=== PATIENT | female | born 1950 | race Caucasian/White ===

== ENCOUNTER 2018-12-26 10:14 | Outpatient (CLI) | payer MEDICARE, BC ==
[2018-12-26 12:45] LABS: BASOPHILS % (AUTO) 0.5 % (0-1); EOSINOPHILS # (AUTO) 0.1 X10'3 (0-0.9); EOSINOPHILS % (AUTO) 1.3 % (0-6); HEMATOCRIT 34.2 % (35.0-45.0); HEMOGLOBIN 11.5 g/dl (12.0-16.0); LYMPHOCYTES # (AUTO) 1.1 X10'3 (1.1-4.8); LYMPHOCYTES % (AUTO) 10.9 % (21-51); MEAN CORPUSCULAR HEMOGLOBIN 28.8 PG (27.0-31.0); MEAN CORPUSCULAR HGB CONC 33.7 g/dL (33.0-36.5); MEAN CORPUSCULAR VOLUME 85.4 FL (78-98); MONOCYTES # (AUTO) 0.6 X10'3 (0-0.9); MONOCYTES % (AUTO) 6.6 % (2-12); NEUTROPHILS # (AUTO) 7.8 X10'3 (1.8-7.7); NEUTROPHILS % (AUTO) 80.7 % (42-75); PLATELET COUNT 296 X10'3 (140-440); RED BLOOD COUNT 4.01 X10'6 (4.20-5.60); RED CELL DISTRIBUTION WIDTH 13.2 % (11.5-14.5); WHITE BLOOD COUNT 9.7 X10'3 (4.5-11.0)
[2018-12-26 12:48] LABS: D-DIMER 1.22 MG/L FEU (0-0.50)
[2018-12-26 12:58] LABS: ALANINE AMINOTRANSFERASE 44 U/L (12-78); ALBUMIN 3.4 G/DL (3.4-5.0); ALBUMIN/GLOBULIN RATIO 0.7 (1.1-1.5); ALKALINE PHOSPHATASE 159 IU/L (46-116); ANION GAP 9 (8-16); ASPARTATE AMINO TRANSFERASE 32 U/L (10-37); BILIRUBIN,TOTAL 0.6 MG/DL (0.1-1.0); BLOOD UREA NITROGEN 15 MG/DL (7-18); BUN/CREATININE RATIO 19.7 (6.6-38.0); CALCIUM 9.2 MG/DL (8.5-10.1); CHLORIDE 100 MMOL/L (99-107); CREATININE 0.76 MG/DL (0.40-0.90); GLUCOSE 128 MG/DL (70-104); POTASSIUM 3.8 MMOL/L (3.5-5.1); SODIUM 134 MMOL/L (135-145); TOTAL CARBON DIOXIDE 25.1 MMOL/L (24-32); TOTAL PROTEIN 8.2 G/DL (6.4-8.2); eGFR 76 ML/MIN
== END 2018-12-26 23:59 | disposition home or self-care (01) ==
LOC: LAB 10:14
PROVIDERS: ATTEND Obstetrics & Gynecology
DX: M79.605 Pain in left leg (principal); R22.42 Localized swelling, mass and lump, left lower limb
CPT/HCPCS: 36415; 80053; 85025; 85379; 85610; 85651

== ENCOUNTER 2018-12-29 17:52 | Inpatient (IN) | payer MEDICARE, BC ==
[~2018-12-29] VITALS: Ht 162.6 cm; Wt 79.1 kg
[2018-12-29 19:54] LABS: BASOPHILS # (AUTO) 0.1 X10'3 (0-0.2); BASOPHILS % (AUTO) 0.6 % (0-1); EOSINOPHILS # (AUTO) 0.2 X10'3 (0-0.9); EOSINOPHILS % (AUTO) 2.1 % (0-6); HEMATOCRIT 31.1 % (35.0-45.0); HEMOGLOBIN 10.5 g/dl (12.0-16.0); LYMPHOCYTES # (AUTO) 1.1 X10'3 (1.1-4.8); LYMPHOCYTES % (AUTO) 12.4 % (21-51); MEAN CORPUSCULAR HEMOGLOBIN 28.4 PG (27.0-31.0); MEAN CORPUSCULAR HGB CONC 33.9 g/dL (33.0-36.5); MEAN CORPUSCULAR VOLUME 83.9 FL (78-98); MEAN PLATELET VOLUME 7.1 FL (7.4-10.4); MONOCYTES # (AUTO) 0.9 X10'3 (0-0.9); MONOCYTES % (AUTO) 10.1 % (2-12); NEUTROPHILS # (AUTO) 6.5 X10'3 (1.8-7.7); NEUTROPHILS % (AUTO) 74.8 % (42-75); PLATELET COUNT 330 X10'3 (140-440); RED BLOOD COUNT 3.71 X10'6 (4.20-5.60); RED CELL DISTRIBUTION WIDTH 13.5 % (11.5-14.5); WHITE BLOOD COUNT 8.6 X10'3 (4.5-11.0)
[2018-12-29 20:04] LABS: ALANINE AMINOTRANSFERASE 51 U/L (12-78); ALBUMIN/GLOBULIN RATIO 0.7 (1.1-1.5); ALKALINE PHOSPHATASE 161 IU/L (46-116); ANION GAP 8 (8-16); ASPARTATE AMINO TRANSFERASE 43 U/L (10-37); BILIRUBIN,TOTAL 0.3 MG/DL (0.1-1.0); BLOOD UREA NITROGEN 19 MG/DL (7-18); BUN/CREATININE RATIO 22.4 (6.6-38.0); CALCIUM 8.9 MG/DL (8.5-10.1); CHLORIDE 102 MMOL/L (99-107); CREATININE 0.85 MG/DL (0.40-0.90); GLUCOSE 101 MG/DL (70-104); SODIUM 135 MMOL/L (135-145); TOTAL CARBON DIOXIDE 25.4 MMOL/L (24-32); TOTAL PROTEIN 7.3 G/DL (6.4-8.2); eGFR 67 ML/MIN
[2018-12-29] MEDS ORDERED: mag hydrox/Alum hydrox/simeth 30ml oral suspension PO PRN (21:35)
[2018-12-29] MEDS ORDERED: vancomycin/NS 1 GM ADD-VANTAGE 250 ML IV ONE (21:35)
[2018-12-29] MEDS ORDERED: magnesium hydroxide 30ml (MOM) UD suspension PO PRN (21:35)
[2018-12-29] MEDS ORDERED: ondansetron/PF 4mg/2ml inj IV PRN (21:35)
[2018-12-29] MEDS ORDERED: acetaminophen 325mg tablet PO PRN (21:35)
[2018-12-29] MEDS ORDERED: CITA20TA19 PO (21:36)
[2018-12-29] MEDS ORDERED: LISI-604 PO (21:36)
[2018-12-29] MEDS ORDERED: LEVO75TA PO (21:36)
[2018-12-29] MEDS ORDERED: TRAZ-251 PO (21:36)
[2018-12-29] MEDS ORDERED: NAPR-56 PO (21:36)
[2018-12-29 22:30] VITALS: BP 129/54
[2018-12-30] MEDS: HYDROcodone/acetaminophen 10/325mg tab PO PRN (03:09)
[2018-12-30 06:00] VITALS: BP 105/48
[2018-12-30 06:08] LABS: BASOPHILS % (AUTO) 0.5 % (0-1); EOSINOPHILS # (AUTO) 0.2 X10'3 (0-0.9); EOSINOPHILS % (AUTO) 2.3 % (0-6); HEMATOCRIT 30.5 % (35.0-45.0); HEMOGLOBIN 10.3 g/dl (12.0-16.0); LYMPHOCYTES # (AUTO) 1.1 X10'3 (1.1-4.8); LYMPHOCYTES % (AUTO) 14.4 % (21-51); MEAN CORPUSCULAR HEMOGLOBIN 28.6 PG (27.0-31.0); MEAN CORPUSCULAR HGB CONC 33.8 g/dL (33.0-36.5); MEAN CORPUSCULAR VOLUME 84.7 FL (78-98); MEAN PLATELET VOLUME 7.8 FL (7.4-10.4); MONOCYTES # (AUTO) 0.8 X10'3 (0-0.9); NEUTROPHILS # (AUTO) 5.5 X10'3 (1.8-7.7); NEUTROPHILS % (AUTO) 72.8 % (42-75); PLATELET COUNT 307 X10'3 (140-440); RED CELL DISTRIBUTION WIDTH 13.2 % (11.5-14.5); WHITE BLOOD COUNT 7.5 X10'3 (4.5-11.0)
--- NOTE | 2018-12-30 06:14 | NUR ---
Problems reprioritized. Patient report given, questions answered & plan of care reviewed with WILLIAM Cespedes.
[2018-12-30 06:40] LABS: ALANINE AMINOTRANSFERASE 48 U/L (12-78); ALBUMIN 2.7 G/DL (3.4-5.0); ALBUMIN/GLOBULIN RATIO 0.6 (1.1-1.5); ALKALINE PHOSPHATASE 155 IU/L (46-116); ANION GAP 11 (8-16); ASPARTATE AMINO TRANSFERASE 41 U/L (10-37); BILIRUBIN,TOTAL 0.3 MG/DL (0.1-1.0); BLOOD UREA NITROGEN 17 MG/DL (7-18); BUN/CREATININE RATIO 18.7 (6.6-38.0); CALCIUM 8.9 MG/DL (8.5-10.1); CHLORIDE 103 MMOL/L (99-107); CREATININE 0.91 MG/DL (0.40-0.90); GLUCOSE 133 MG/DL (70-104); POTASSIUM 4.4 MMOL/L (3.5-5.1); SODIUM 140 MMOL/L (135-145); TOTAL CARBON DIOXIDE 25.9 MMOL/L (24-32); TOTAL PROTEIN 7.1 G/DL (6.4-8.2); eGFR 62 ML/MIN
[2018-12-30] MEDS ORDERED: heparin, porcine 5000 units/ml vial SQ SCH (08:00)
[2018-12-30] MEDS: levoTHYROXINE 75mcg tablet PO SCH (09:22)
[2018-12-30] MEDS: citalopram 20mg tablet PO SCH (09:22)
[2018-12-30] MEDS: lisinopril 5mg tablet PO SCH (09:22)
[2018-12-30] MEDS: vancomycin/NS 1 GM ADD-VANTAGE 250 ML IV SCH ×2 (09:24→22:15)
[2018-12-30 10:00] VITALS: BP 119/58
[2018-12-30] MEDS ORDERED: HYDROmorphone inj. 0.5 MG/0.5 ML DISP.SYRIN IV PRN (11:10)
[2018-12-30] MEDS ORDERED: HYDROmorphone 1 mg/ml syringe IV PRN (11:10)
--- NOTE | 2018-12-30 16:48 | NUR ---
PAGER ID: [phone] MESSAGE: Rubina Fernandez0 Georgia Collazo in [id number]- pls see mri results, recommends percutaneous drainage. Ortho consult? Addendum: 12/30/18 at 1649 by Genie Walters RN Dr Stanley advised that Jossie will consult
[2018-12-30] MEDS ORDERED: gadopentetate dimeglumine 7.5 MMOL/15 ML syringe ONE (17:44)
[2018-12-30 18:00] VITALS: BP 120/57
--- NOTE | 2018-12-30 18:30 | NUR ---
Patient in room ORTHO 4024. I have received report from Rubina THOMAS and had the opportunity to ask questions and assume patient care.
[2018-12-30] MEDS: lactobacillus rhamnosus 10,000 MMU CELLS/CAPSULE PO SCH (19:05)
[2018-12-30] MEDS: HYDROcodone/acetaminophen 5mg/325mg tablet PO PRN (19:05)
[2018-12-30] MEDS ORDERED: traZODone 50mg tablet PO ONE (19:15)
[2018-12-30] MEDS ORDERED: traZODone 50mg tablet PO SCH (20:00)
[2018-12-30 20:44] VITALS: BP 120/57
[2018-12-30 22:00] VITALS: BP 121/59
[2018-12-31] VITALS (18 sets, daily range): BP systolic 97–136; BP diastolic 40–78
--- NOTE | 2018-12-31 06:26 | NUR ---
Problems reprioritized. Patient report given, questions answered & plan of care reviewed with oncoming RN.
[2018-12-31 06:29] LABS: BASOPHILS % (AUTO) 0.6 % (0-1); EOSINOPHILS # (AUTO) 0.2 X10'3 (0-0.9); EOSINOPHILS % (AUTO) 2.4 % (0-6); HEMATOCRIT 31.6 % (35.0-45.0); HEMOGLOBIN 10.6 g/dl (12.0-16.0); LYMPHOCYTES # (AUTO) 1.4 X10'3 (1.1-4.8); LYMPHOCYTES % (AUTO) 18.8 % (21-51); MEAN CORPUSCULAR HEMOGLOBIN 28.8 PG (27.0-31.0); MEAN CORPUSCULAR HGB CONC 33.6 g/dL (33.0-36.5); MEAN CORPUSCULAR VOLUME 85.5 FL (78-98); MEAN PLATELET VOLUME 7.6 FL (7.4-10.4); MONOCYTES # (AUTO) 0.7 X10'3 (0-0.9); MONOCYTES % (AUTO) 9.2 % (2-12); PLATELET COUNT 332 X10'3 (140-440); RED CELL DISTRIBUTION WIDTH 13.8 % (11.5-14.5); WHITE BLOOD COUNT 7.2 X10'3 (4.5-11.0)
[2018-12-31 06:40] LABS: ALANINE AMINOTRANSFERASE 53 U/L (12-78); ALBUMIN 2.7 G/DL (3.4-5.0); ALBUMIN/GLOBULIN RATIO 0.6 (1.1-1.5); ALKALINE PHOSPHATASE 166 IU/L (46-116); ANION GAP 8 (8-16); ASPARTATE AMINO TRANSFERASE 40 U/L (10-37); BILIRUBIN,TOTAL 0.4 MG/DL (0.1-1.0); BLOOD UREA NITROGEN 11 MG/DL (7-18); BUN/CREATININE RATIO 15.7 (6.6-38.0); CALCIUM 9.1 MG/DL (8.5-10.1); CHLORIDE 103 MMOL/L (99-107); GLUCOSE 113 MG/DL (70-104); POTASSIUM 4.3 MMOL/L (3.5-5.1); SODIUM 137 MMOL/L (135-145); TOTAL CARBON DIOXIDE 25.9 MMOL/L (24-32); TOTAL PROTEIN 7.2 G/DL (6.4-8.2); eGFR 84 ML/MIN
[2018-12-31] MEDS ORDERED: BUPIVAcaine/PF 2.5 mg/ml (0.25%) 30ml vial ONE (07:20)
--- NOTE | 2018-12-31 07:21 | NUR ---
EKG completed per MD orders at 0607. TC placed to Dr. Sethi and informed EKG read "NSR, Nonspecific ST and T wave abnormality." No new orders received from Dr. Sethi.
[2018-12-31] MEDS ORDERED: sevoflurane 250ml liquid IH ONE (07:58)
[2018-12-31] MEDS ORDERED: fentaNYL/PF 50MCG/1 ML 2ML syringe ONE ×2 (08:01→08:17)
[2018-12-31] MEDS ORDERED: midazolam 2 mg/2 ml injection ONE (08:01)
[2018-12-31] MEDS ORDERED: LIDOcaine 2% (20mg/ml) 5ml vial ONE (08:20)
[2018-12-31] MEDS ORDERED: propofol inj 20 ML IV ONE (08:20)
[2018-12-31] MEDS ORDERED: ringers solution, lacted 1,000 ML IV SCH (08:28)
[2018-12-31] MEDS ORDERED: meperidine/PF 25mg/ml syringe IV PRN ×3 (08:30)
[2018-12-31] MEDS ORDERED: ondansetron/PF 4mg/2ml inj ONE (08:30)
[2018-12-31] MEDS ORDERED: morphine 4 MG/ML inj SYRINge IV PRN ×2 (08:30)
[2018-12-31] MEDS ORDERED: ondansetron/PF 4mg/2ml inj IV PRN (08:30)
[2018-12-31] MEDS ORDERED: proCHLORperazine 10 MG/2 ml inj IV PRN (08:30)
--- NOTE | 2018-12-31 08:35 | NUR ---
Received from OR via BED, accompanied by Anesthesiologist DR LORENZO and report given by Anesthesiolgist. PATIENT A&OX4, DENIES PAIN, V/S WNL, NEUROVASCULAR CHECKS INTACT, 20G PIV RUE, SCD ON, DRESSING TOLEFT KNEE CDI
[2018-12-31] MEDS ORDERED: VANCOMYCIN LEVEL IV ONE ×2 (09:30)
--- NOTE | 2018-12-31 09:35 | NUR ---
PATIENT A&OX4, DENIES PAIN, V/S WNL, NEUROVASCULAR CHECKS INTACT, 20G PIV RUE, SCD ON, DRESSING TO LEFT KNEE CDI , PATIENT TAKEN TO 4024B WITH ALL BELONGINGS AND HOOKED UP TO MONITORS IN ROOM AND REPORT GIVEN TO RN WHO HAS TAKEN OVER PATIENT CARE.
[2018-12-31] MEDS: vancomycin/NS 1 GM ADD-VANTAGE 250 ML IV SCH (10:48)
[2018-12-31] MEDS: lisinopril 5mg tablet PO SCH (11:42)
[2018-12-31] MEDS: citalopram 20mg tablet PO SCH (11:42)
[2018-12-31] MEDS: levoTHYROXINE 75mcg tablet PO SCH (11:42)
[2018-12-31] MEDS: lactobacillus rhamnosus 10,000 MMU CELLS/CAPSULE PO SCH ×2 (11:42→20:55)
[2018-12-31] MEDS: HYDROcodone/acetaminophen 10/325mg tab PO PRN (14:45)
--- NOTE | 2018-12-31 18:42 | NUR ---
Problems reprioritized. Patient report given, questions answered & plan of care reviewed with WILLIAM Lucero.
[2018-12-31] MEDS: traZODone 50mg tablet PO SCH (20:52)
[2018-12-31] MEDS: HYDROcodone/acetaminophen 5mg/325mg tablet PO PRN (20:53)
[2019-01-01] MEDS: HYDROcodone/acetaminophen 10/325mg tab PO PRN ×2 (00:57→09:18)
[2019-01-01 02:16] VITALS: BP 100/45
[2019-01-01 06:00] VITALS: BP 94/72
--- NOTE | 2019-01-01 06:23 | NUR ---
Problems reprioritized. Patient report given, questions answered & plan of care reviewed with WILLIAM SMITH.
[2019-01-01 06:54] LABS: BASOPHILS # (AUTO) 0.1 X10'3 (0-0.2); BASOPHILS % (AUTO) 1.1 % (0-1); EOSINOPHILS # (AUTO) 0.2 X10'3 (0-0.9); EOSINOPHILS % (AUTO) 4.3 % (0-6); HEMATOCRIT 33.7 % (35.0-45.0); LYMPHOCYTES # (AUTO) 1.7 X10'3 (1.1-4.8); MEAN CORPUSCULAR HEMOGLOBIN 27.9 PG (27.0-31.0); MEAN CORPUSCULAR HGB CONC 32.7 g/dL (33.0-36.5); MEAN CORPUSCULAR VOLUME 85.1 FL (78-98); MEAN PLATELET VOLUME 7.4 FL (7.4-10.4); MONOCYTES # (AUTO) 0.5 X10'3 (0-0.9); MONOCYTES % (AUTO) 8.6 % (2-12); NEUTROPHILS # (AUTO) 2.9 X10'3 (1.8-7.7); PLATELET COUNT 380 X10'3 (140-440); RED BLOOD COUNT 3.96 X10'6 (4.20-5.60); RED CELL DISTRIBUTION WIDTH 13.8 % (11.5-14.5); WHITE BLOOD COUNT 5.3 X10'3 (4.5-11.0)
[2019-01-01 07:06] LABS: ALANINE AMINOTRANSFERASE 57 U/L (12-78); ALBUMIN 2.9 G/DL (3.4-5.0); ALBUMIN/GLOBULIN RATIO 0.6 (1.1-1.5); ALKALINE PHOSPHATASE 172 IU/L (46-116); ANION GAP 8 (8-16); ASPARTATE AMINO TRANSFERASE 37 U/L (10-37); BILIRUBIN,TOTAL 0.4 MG/DL (0.1-1.0); BLOOD UREA NITROGEN 13 MG/DL (7-18); BUN/CREATININE RATIO 17.3 (6.6-38.0); CALCIUM 9.4 MG/DL (8.5-10.1); CHLORIDE 103 MMOL/L (99-107); CREATININE 0.75 MG/DL (0.40-0.90); GLUCOSE 97 MG/DL (70-104); POTASSIUM 3.9 MMOL/L (3.5-5.1); SODIUM 141 MMOL/L (135-145); TOTAL CARBON DIOXIDE 30.4 MMOL/L (24-32); TOTAL PROTEIN 7.9 G/DL (6.4-8.2); eGFR 77 ML/MIN
[2019-01-01] MEDS: lactobacillus rhamnosus 10,000 MMU CELLS/CAPSULE PO SCH ×2 (08:53→19:36)
[2019-01-01] MEDS: lisinopril 5mg tablet PO SCH (08:53)
[2019-01-01] MEDS: levoTHYROXINE 75mcg tablet PO SCH (08:53)
[2019-01-01] MEDS: citalopram 20mg tablet PO SCH (08:53)
[2019-01-01 10:00] VITALS: BP 115/55
[2019-01-01 18:00] VITALS: BP 115/59
--- NOTE | 2019-01-01 18:29 | NUR ---
Problems reprioritized. Patient report given, questions answered & plan of care reviewed with WILLIAM Lucero.
--- NOTE | 2019-01-01 18:30 | NUR ---
Patient in room ORTHO 4024. I have received report from WILLIAM SMITH and had the opportunity to ask questions and assume patient care.
[2019-01-01] MEDS: traZODone 50mg tablet PO SCH (19:36)
[2019-01-01] MEDS: HYDROcodone/acetaminophen 5mg/325mg tablet PO PRN (19:36)
[2019-01-01 22:00] VITALS: BP 141/51
[2019-01-02 06:00] VITALS: BP 116/65
[2019-01-02 06:27] LABS: BASOPHILS # (AUTO) 0.1 X10'3 (0-0.2); BASOPHILS % (AUTO) 1.1 % (0-1); EOSINOPHILS # (AUTO) 0.2 X10'3 (0-0.9); EOSINOPHILS % (AUTO) 4.9 % (0-6); HEMATOCRIT 34.4 % (35.0-45.0); HEMOGLOBIN 11.6 g/dl (12.0-16.0); LYMPHOCYTES # (AUTO) 1.6 X10'3 (1.1-4.8); LYMPHOCYTES % (AUTO) 33.5 % (21-51); MEAN CORPUSCULAR HEMOGLOBIN 28.4 PG (27.0-31.0); MEAN CORPUSCULAR HGB CONC 33.6 g/dL (33.0-36.5); MEAN CORPUSCULAR VOLUME 84.4 FL (78-98); MEAN PLATELET VOLUME 6.9 FL (7.4-10.4); MONOCYTES # (AUTO) 0.4 X10'3 (0-0.9); NEUTROPHILS # (AUTO) 2.5 X10'3 (1.8-7.7); NEUTROPHILS % (AUTO) 52.5 % (42-75); PLATELET COUNT 406 X10'3 (140-440); RED BLOOD COUNT 4.08 X10'6 (4.20-5.60); RED CELL DISTRIBUTION WIDTH 13.7 % (11.5-14.5); WHITE BLOOD COUNT 4.7 X10'3 (4.5-11.0)
--- NOTE | 2019-01-02 06:33 | NUR ---
Problems reprioritized. Patient report given, questions answered & plan of care reviewed with WILLIAM SMITH.
[2019-01-02 06:38] LABS: ALANINE AMINOTRANSFERASE 53 U/L (12-78); ALBUMIN/GLOBULIN RATIO 0.6 (1.1-1.5); ALKALINE PHOSPHATASE 157 IU/L (46-116); ANION GAP 9 (8-16); ASPARTATE AMINO TRANSFERASE 34 U/L (10-37); BILIRUBIN,TOTAL 0.3 MG/DL (0.1-1.0); BLOOD UREA NITROGEN 15 MG/DL (7-18); BUN/CREATININE RATIO 19.2 (6.6-38.0); CALCIUM 9.4 MG/DL (8.5-10.1); CHLORIDE 102 MMOL/L (99-107); CREATININE 0.78 MG/DL (0.40-0.90); GLUCOSE 113 MG/DL (70-104); POTASSIUM 4.4 MMOL/L (3.5-5.1); SODIUM 139 MMOL/L (135-145); TOTAL PROTEIN 7.9 G/DL (6.4-8.2); eGFR 74 ML/MIN
[2019-01-02] MEDS: levoTHYROXINE 75mcg tablet PO SCH (08:07)
[2019-01-02] MEDS: lisinopril 5mg tablet PO SCH (08:07)
[2019-01-02] MEDS: lactobacillus rhamnosus 10,000 MMU CELLS/CAPSULE PO SCH (08:07)
[2019-01-02] MEDS: citalopram 20mg tablet PO SCH (08:08)
[2019-01-02] MEDS ORDERED: VANCOMYCIN LEVEL IV ONE (09:30)
[2019-01-02 10:00] VITALS: BP 144/66
[2019-01-02] MEDS: HYDROcodone/acetaminophen 5mg/325mg tablet PO PRN (10:36)
[2019-01-02] MEDS ORDERED: CLIN300C3 PO (14:58)
[2019-01-02] MEDS ORDERED: LACT1CAP26 PO (14:58)
== END 2019-01-02 17:38 | disposition home health service (06) | DRG 603 ==
LOC: ER 17:53 → ORTHO 4S 22:47 → CMPBEDREQ 01-01 21:12
PROVIDERS: ADMIT Internal Medicine; ATTEND Family Medicine
PROC: BQ38YZZ Magnetic Resonance Imaging (MRI) of Left Knee using Other Contrast (ICD-10-PCS; 2018-12-30)
PROC: 0J9P00Z Drainage of Left Lower Leg Subcutaneous Tissue and Fascia with Drainage Device, Open Approach (ICD-10-PCS; 2018-12-31)
PROC: 0HDJXZZ Extraction of Left Upper Leg Skin, External Approach (ICD-10-PCS; principal; 2018-12-31 07:58)
DX: L02.416 Cutaneous abscess of left lower limb (principal); N17.9 Acute kidney failure, unspecified; L03.116 Cellulitis of left lower limb; B95.62 Methicillin resistant Staphylococcus aureus infection as the cause of diseases classified elsewhere; I10 Essential (primary) hypertension; E86.0 Dehydration; D64.9 Anemia, unspecified; G47.30 Sleep apnea, unspecified; Z88.1 Allergy status to other antibiotic agents; Z79.899 Other long term (current) drug therapy
CPT/HCPCS: 36415; 73723; 80053; 80202; 83605; 84443; 85025; 85379; 85610; 85651; 87070; 87075; 87077; 87081; 87186; 93005; 96365; 99285; A4215; A4618; A6446; A6449; A7000; A9579; G0378; J1170; J1644; J2001; J2250; J2405; J2704; J3010; J3370; J3490; J7120

== ENCOUNTER 2023-06-04 23:16 | Emergency (ER) | payer MEDICARE, BC ==
[~2023-06-04] VITALS: Ht 162.6 cm; Wt 78.0 kg
[~2023-06-04 23:16] MED LIST: CITA20TA19 PO; LACT1CAP26 PO; LEVO75TA PO; LISI5TAB22 PO; TRAZ-251 PO
[2023-06-04] MEDS ORDERED: aspirin 81mg tab.chew PO ONE (23:50)
[2023-06-05 00:16] LABS: BASOPHILS % (AUTO) 0.3 % (0-1); EOSINOPHILS # (AUTO) 0.1 X10'3 (0-0.9); EOSINOPHILS % (AUTO) 1.2 % (0-6); HEMATOCRIT 37.4 % (35.0-45.0); HEMOGLOBIN 12.8 g/dl (12.0-16.0); LYMPHOCYTES # (AUTO) 1.3 X10'3 (1.1-4.8); LYMPHOCYTES % (AUTO) 15.3 % (21-51); MEAN CORPUSCULAR HEMOGLOBIN 29.5 PG (27.0-31.0); MEAN CORPUSCULAR HGB CONC 34.1 g/dL (33.0-36.5); MEAN CORPUSCULAR VOLUME 86.3 FL (78-98); MEAN PLATELET VOLUME 8.1 FL (7.4-10.4); MONOCYTES # (AUTO) 0.6 X10'3 (0-0.9); MONOCYTES % (AUTO) 6.9 % (2-12); NEUTROPHILS # (AUTO) 6.3 X10'3 (1.8-7.7); NEUTROPHILS % (AUTO) 76.3 % (42-75); PLATELET COUNT 156 X10'3 (140-440); RED BLOOD COUNT 4.33 X10'6 (4.20-5.60); RED CELL DISTRIBUTION WIDTH 13.7 % (11.5-14.5); WHITE BLOOD COUNT 8.3 X10'3 (4.5-11.0)
[2023-06-05 00:28] LABS: ALANINE AMINOTRANSFERASE 32 U/L (12-78); ALBUMIN 4.1 G/DL (3.4-5.0); ALBUMIN/GLOBULIN RATIO 1.2 (1.1-1.5); ALKALINE PHOSPHATASE 99 IU/L (46-116); ANION GAP 10 (8-16); ASPARTATE AMINO TRANSFERASE 19 U/L (10-37); BILIRUBIN,TOTAL 0.3 MG/DL (0.1-1.0); BLOOD UREA NITROGEN 18 MG/DL (7-18); CALCIUM 9.2 MG/DL (8.5-10.1); CHLORIDE 103 MMOL/L (99-107); CREATININE 0.75 MG/DL (0.40-0.90); GLUCOSE 144 MG/DL (70-104); POTASSIUM 3.8 MMOL/L (3.5-5.1); SODIUM 137 MMOL/L (135-145); TOTAL CARBON DIOXIDE 24.2 MMOL/L (24-32); TOTAL PROTEIN 7.6 G/DL (6.4-8.2); eCRCL 60 ML/MIN; eGFR 76 ML/MIN
[2023-06-05 03:53] VITALS: BP 116/54; PULSE 69; RESP 16; TEMP 98.3; O2SAT 95
== END 2023-06-05 03:56 | disposition home or self-care (01) ==
LOC: ER 23:16
DX: M25.512 Pain in left shoulder (principal); I10 Essential (primary) hypertension; Z86.14 Personal history of Methicillin resistant Staphylococcus aureus infection; Z88.1 Allergy status to other antibiotic agents; Z79.899 Other long term (current) drug therapy
CPT/HCPCS: 36415; 71045; 80053; 84484; 85025; 93005; 99285

== ENCOUNTER 2025-03-15 16:44 | Emergency (ER) | payer MEDICARE, BC ==
[~2025-03-15] VITALS: Ht 162.6 cm; Wt 72.7 kg
[2025-03-15 17:01] VITALS: BP 141/64; PULSE 73; RESP 16; TEMP 98.6; O2SAT 98
--- NOTE | 2025-03-15 17:08 | Physician Documentation ---
History of Present Illness ~ Chief Complaint: Toe pain Stated Complaint: TOE FRACTURE Time Seen by MD: 17:05 Primary Medical Doctor: Silvestre Stanley M.D. Source: patient Mode of Arrival: POV Exam Limitations: no limitations HPI 74-year-old female dropped 2x8 on right great toe concerned for fracture Tetanus witin 5 years: Yes Medication Reconciliation Allergies: Coded Allergies: erythromycin base (Verified Adverse Reaction, Severe, abdominal pain, 03/15/25) Scheduled Citalopram Hydrobromide (Celexa), 1 TAB PO DAILY, (Reported) Ibuprofen (Ibuprofen), 1 TAB PO Q8H Lactobacillus Rhamnosus (Culturelle), 10,000 MMU PO Q12H Levothyroxine Sodium* (Synthroid*), 1 TAB PO DAILY, (Reported) Lisinopril (Lisinopril), 2 TAB PO DAILY, (Reported) Trazodone HCl (Trazodone HCl), 1 TAB PO HS, (Reported) Past Medical History Past Medical History: No Pertinent History, Hypertension, MRSA Abscess Past Surgical History: noncontributory Alcohol Use: None Drug Use: none Lives In: Home Review of Systems All Other Systems at this time: Reviewed and Negative Musculoskeletal: Reports: see HPI Physical Exam Vital Signs: RN Vital Signs have been reviewed: Yes, Temperature: 98.6, Source: Oral, Heart Rate: 73, Respiratory Rate: 16, BP: 141/64, Pulse Oximetry: 98, Weight: 72.730 Oxygen Flow Rate: 0 Physical Exam General: Alert, no apparent distress. HEENT: moist mucous membranes. Neck: Full range of motion. Respiratory: No respiratory distress speaking in full sentences Chest: No accessory muscle use. Cardiovascular: Appears well perfused Neurologic: Oriented x4. Musculoskeletal: No subungual hematoma, no obvious deformity of right great toe some bruising Psychiatric: Normal mood and affect. Skin: Normal color, warm and dry. No edema, no ecchymosis. Progress Results/Orders Results/Orders Orders - FRAKNLIN [facility]ZA [employer] Toe(S) (03/15/25 17:08) Ortho Orders (03/15/25 ) Completed Orders - FRANKLIN [facility]ZA [employer] Toe(S) (03/15/25 17:08) Vital Signs 03/15/25 17:01 Temp 98.6 Pulse 73 Resp 16 B/P (MAP) 141/64 Pulse Ox 98 O2 Flow Rate 0 EKG/XRAY/CT/US/VASC/MRI Bone/Soft Tissue X-Ray (Ext.) : Additional Comment CLINICAL INDICATION: Toe injury dropped item right great toe TECHNIQUE: 3 radiographic views of the right foot were obtained. Comparison: None FINDINGS/IMPRESSION: There is acute mildly displaced comminuted fracture of the distal part of the 4th toe proximal phalanx with associated soft tissue edema. Acute minimally displaced fracture of the distal diaphysis of the 2nd toe middle phalanx Medical Decision Making Additional information obtaine: N/A Findings X-ray to evaluate for any osseous abnormality due to a shelf falling on toe. Fracture noted to the 1st and the 2nd toes walking boot placed an orthopedic referral for further treatment and evaluation General Diff Dx:Considerations: Unlikely: Abrasion, Contusion, Fracture, Hematoma, Laceration, Malunion, Neurovascular injury, Open fracture, Sprain, Ulcer, Other Knee Diff Dx:Considerations: Unlikely: Abrasion, Arthritis, Contusion, DJD, Fracture-femur, Fracture-fibula, Fracture-patella, Fracture-tibia, Gout, Hematoma, Laceration, Meniscus injury, Neurovascular injury, Open fracture, Rh eumatoid arthritis, Septic, Sprain, Sprain-MCL, Sprain-LCL, Sprain-ACL, Sprain- PCL, Other Ankle Diff Dx:Considerations: Unlikely: Abrasion, Arthritis, Contusion, DJD, Fracture-metatarsal, Fracture-fibula, Fracture-tarsal, Fracture-tibia, Gout, Hematoma, Laceration, Malunion, Neurovascular injury, Nonunion, Open fracture, Osteomyelitis, Rheumatoid arthritis, Sprain, Septic, Ulcer, Other Foot Diff Dx:Considerations: Unlikely: Abrasion, Arthritis, Cellulitis, Contusi on, Dislocation, DJD, Fracture-metatarsal, Fracture-phalynx, Fracture-tarsal, Gout, Hematoma, Ingrown toenail, Laceration, Malunion, Neurovascular injury, Open fracture, Paronychia, Puncture, Rheumatoid, Sprain, Septic, Subungual hematoma, Ulcer, Other Toe Diff Dx:Considerations: Include: Contusion, Dislocation, Fracture, Other Departure Time of Disposition: 18:09 Impression: Primary Impression: Toe fracture Condition: Stable Discharge Instructions: Toe Fracture, [id number] Additional Instructions: Wear walking boot until you are able to be evaluated by Orthopedics as there is a fracture to the 1st toe and the 2nd toe. Rest stay well hydrated use Tylenol or ibuprofen as needed for [id number]-jp-[id number] pain. Contact [facility] on Tuesday follow up with your primary care CLINICAL INDICATION: Toe injury dropped item right great toe TECHNIQUE: 3 radiographic views of the right foot were obtained. Comparison: None FINDINGS/IMPRESSION: There is acute mildly displaced comminuted fracture of the distal part of the 4th toe proximal phalanx with associated soft tissue edema. Acute minimally displaced fracture of the distal diaphysis of the 2nd toe middle phalanx Referrals: NO PRIMARY CARE PROVIDER (PCP) [facility] Prescriptions Ibuprofen (Ibuprofen) 800 Mg Tablet 1 TAB PO Q8H for pain for 10 Days, #30 TAB 0 Refills Prov: FRANKLIN PLAZA NP 03/15/25 Education Educated: Patient Educated regarding: diagnosis, treatment, need for follow up Signature Scribe Signature: No scribe Attestation: The note accurately reflects work and decisions made by me.Franklin COFFEY 03/15/25 18:11 FRANKLIN PLAZA NP Mar 15, 2025 17:08
--- NOTE | 2025-03-15 17:52 | RADIOLOGY REPORT ---
CLINICAL INDICATION: Toe injury dropped item right great toe TECHNIQUE: 3 radiographic views of the right foot were obtained. Comparison: None FINDINGS/IMPRESSION: There is acute mildly displaced comminuted fracture of the distal part of the 4th toe proximal phalanx with associated soft tissue edema. Acute minimally displaced fracture of the distal diaphysis of the 2nd toe middle phalanx
[2025-03-15] MEDS ORDERED: IBUP-1986 PO (18:10)
== END 2025-03-15 18:32 | disposition home or self-care (01) ==
LOC: ER 16:44
DX: S92.411A Displaced fracture of proximal phalanx of right great toe, initial encounter for closed fracture (principal); Z88.1 Allergy status to other antibiotic agents; Z79.899 Other long term (current) drug therapy; X58.XXXA Exposure to other specified factors, initial encounter; Y93.89 Activity, other specified; Y92.89 Other specified places as the place of occurrence of the external cause; Y99.8 Other external cause status
CPT/HCPCS: 73660; 99283; L4360